=== PATIENT | female | born 1990 | race Hispanic/Latino ===

== ENCOUNTER 2017-12-12 18:32 | Inpatient (IN) | payer OTHER ==
[~2017-12-12] VITALS: Ht 160 cm; Wt 90.0 kg
[~2017-12-12 18:32] MED LIST: ALPRAZOLAM0.25 M2 PO; AMOXICILLIN500 M1 PO; ATARAX,VISTARIL25 MG PO; ATARAX,VISTARIL50 MG PO; DESYREL100 MG PO; DESYREL300 MG PO; ELIMITE 5% CREA60 GM TP; FLONASE16 G1 BOTH NARES; FLUOXETINE HCL20 MG PO; MUCUS RELIEF600 MG PO; PREDNISONE20 MG PO; PROZAC10 M1 PO; PROZAC40 MG PO; Prozac PO; SINGULAIR10 MG PO; Singulair PO; TOPAMAX100 MG PO; TOPAMAX50 MG PO; TOPIRAMATE100 MG PO; TRAZODONE HCL100 MG PO; XANAX XR0.5 MG PO; XANAX0.5 MG PO; ZYPREXA15 MG PO; ZYPREXA20 MG PO
[2017-12-12 19:52] LABS: HEMATOCRIT 42.8 % (36.0-46.0); HEMOGLOBIN 14.2 G/DL (11.9-15.5); MCH 29.1 PG (29.0-34.0); MCHC 33.2 G/DL (30.0-36.0); MCV 87.7 FL (83-99); PLATELET COUNT 293 K/uL (156-360); RBC DIS.WIDTH-CV 13.9 % (11.8-14.6); RBC DIS.WIDTH-SD 45.1 % (39-53); RED BLOOD COUNT 4.88 M/uL (3.80-5.20); WHITE BLOOD COUNT 11.3 K/uL (4.1-10.2)
[2017-12-12 20:12] LABS: CHLORIDE 105 mEq/L (99-109); POTASSIUM 3.8 mEq/L (3.7-5.4); SODIUM 135 mEq/L (136-147)
[2017-12-12 20:14] LABS: GLUCOSE 78 mg/dL (70-99)
[2017-12-12 20:17] LABS: SERUM ETHYL ALCOHOL < 10 mg/dL
[2017-12-12 20:18] LABS: CREATININE 0.9 mg/dL (0.6-1.3); GFR ESTIMATE (CALCULATED) > 59 mL/min/
[2017-12-12 20:19] LABS: UREA NITROGEN (BUN) 16 mg/dL (9-23)
[2017-12-12 20:26] LABS: QUANTITATIVE HCG < 4.0 MIU/ML
[2017-12-12 20:36] LABS: AMPHETAMINE NEGATIVE (500 ng/mL); BARBITURATES NEGATIVE (200 ng/mL); BENZODIAZEPINES NEGATIVE (150 ng/mL); BUPRENORPHINE NEGATIVE (10 ng/mL); COCAINE NEGATIVE (150 ng/mL); METHADONE NEGATIVE (200 ng/mL); METHAMPHETAMINE NEGATIVE (500 ng/mL); OPIATES (MORPHINE) NEGATIVE (100 ng/mL); OXYCODONE NEGATIVE (100 ng/mL); PHENCYCLIDINE NEGATIVE (25 ng/mL); PROPOXYPHENE NEGATIVE (300 ng/mL); THC CANNABINOIDS NEGATIVE (50 ng/mL); TRICYCLIC ANTIDEPRESSANTS NEGATIVE (300 ng/mL)
[2017-12-12] MEDS ORDERED: PROZAC40 MG PO (23:34)
[2017-12-12] MEDS ORDERED: HALDOL5 MG PO (23:35)
[2017-12-12] MEDS ORDERED: COGENTIN1 MG PO (23:36)
[2017-12-13 01:55] VITALS: BP 150/83
[2017-12-13 08:00] VITALS: BP 125/71
[2017-12-13 15:52] VITALS: BP 122/83
[2017-12-14 07:37] VITALS: BP 134/60
[2017-12-14 16:02] VITALS: BP 129/72
[2017-12-15 07:42] VITALS: BP 125/59
[2017-12-15] MEDS ORDERED: GABAPENTIN300 MG PO (09:49)
[2017-12-15] MEDS ORDERED: RISPERIDONE1 MG PO (09:49)
[2017-12-15] MEDS ORDERED: FLUOXETINE HCL20 MG PO (09:49)
== END 2017-12-15 11:22 | disposition home or self-care (01) | DRG 885 ==
LOC: EME 18:32 → EDOF 23:36 → ENRESERV 12-13 01:45 → 1WEST 12-13 01:46
PROVIDERS: Emergency Medicine
DX: F31.9 Bipolar disorder, unspecified (principal); R45.851 Suicidal ideations; F43.10 Post-traumatic stress disorder, unspecified; E66.01 Morbid (severe) obesity due to excess calories; F63.9 Impulse disorder, unspecified; K21.9 Gastro-esophageal reflux disease without esophagitis; J45.909 Unspecified asthma, uncomplicated; F17.200 Nicotine dependence, unspecified, uncomplicated; F20.9 Schizophrenia, unspecified; Z68.35 Body mass index [BMI] 35.0-35.9, adult; Z81.8 Family history of other mental and behavioral disorders; Z87.820 Personal history of traumatic brain injury; Z91.5 Personal history of self-harm
CPT/HCPCS: 80048; 84702; 85027; 90837; 97150 GO; 97165 GO; 99281; 99285; G0480

== ENCOUNTER 2018-03-15 19:58 | Emergency (ER) | payer OTHER ==
[~2018-03-15] VITALS: Ht 160 cm; Wt 105.3 kg
[~2018-03-15 19:58] MED LIST changes: +COGENTIN1 MG PO; +GABAPENTIN300 MG PO; +HALDOL5 MG PO; +RISPERIDONE1 MG PO
[2018-03-15 20:26] LABS: HEMATOCRIT 45.1 % (36.0-46.0); HEMOGLOBIN 15.2 G/DL (11.9-15.5); MCHC 33.7 G/DL (30.0-36.0); MCV 89.1 FL (83-99); PLATELET COUNT 291 K/uL (156-360); RBC DIS.WIDTH-CV 13.7 % (11.8-14.6); RBC DIS.WIDTH-SD 44.6 % (39-53); RED BLOOD COUNT 5.06 M/uL (3.80-5.20); WHITE BLOOD COUNT 11.7 K/uL (4.1-10.2)
[2018-03-15 20:40] LABS: ALBUMIN 4.1 g/dL (3.2-4.8); CHLORIDE 103 mEq/L (99-109); POTASSIUM 4.5 mEq/L (3.7-5.4); SODIUM 138 mEq/L (136-147)
[2018-03-15 20:43] LABS: GLUCOSE 73 mg/dL (70-99); TOTAL PROTEIN 7.8 g/dL (6.4-8.3)
[2018-03-15 20:45] LABS: TOTAL BILIRUBIN 0.2 mg/dL (0.0-1.0)
[2018-03-15 20:46] LABS: ALKALINE PHOSPHATASE 83 IU/L (3-129); CREATININE 0.8 mg/dL (0.6-1.3); GFR ESTIMATE (CALCULATED) > 59 mL/min/
[2018-03-15 20:47] LABS: UREA NITROGEN (BUN) 17 mg/dL (9-23)
[2018-03-15 20:48] LABS: AST (GOT) 27 IU/L (2-34)
[2018-03-15 20:49] LABS: ALT (GPT) 20 IU/L (3-49)
[2018-03-15 20:57] LABS: QUANTITATIVE HCG < 4.0 MIU/ML
[2018-03-15 20:59] VITALS: BP 118/85
[2018-03-15 20:59] LABS: APPEARANCE CLOUDY ((CLEAR)); BILIRUBIN NEGATIVE; BLOOD NEGATIVE; COLOR YELLOW ((YELLOW)); GLUCOSE (STRIP) NEGATIVE; KETONES NEGATIVE; LEUKOCYTES NEGATIVE; NITRITE NEGATIVE; PROTEIN (STRIP) NEGATIVE; SPECIFIC GRAVITY 1.019 (1.000-1.030); UROBILINOGEN 0.2 MG/DL (0.2-1.0)
[2018-03-15 21:05] LABS: BACTERIA RARE /HPF; EPITHELIAL CELLS 3+ /HPF; MUCUS TRACE /LPF; RED BLOOD CELLS 0-5 /HPF (0-5); UCUL ADDED? NO; WHITE BLOOD CELLS 0-5 /HPF (0-5)
[2018-03-15] MEDS ORDERED: NIZORAL 2% CREA15 GM TP (21:51)
[2018-03-15] MEDS ORDERED: LAMISIL250 MG PO (21:51)
== END 2018-03-15 21:53 | disposition home or self-care (01) ==
LOC: EME 19:58
DX: B35.4 Tinea corporis (principal); J45.909 Unspecified asthma, uncomplicated; K21.9 Gastro-esophageal reflux disease without esophagitis; R56.9 Unspecified convulsions; G43.909 Migraine, unspecified, not intractable, without status migrainosus; F43.10 Post-traumatic stress disorder, unspecified; F32.9 Major depressive disorder, single episode, unspecified; F31.9 Bipolar disorder, unspecified; F20.9 Schizophrenia, unspecified; F17.200 Nicotine dependence, unspecified, uncomplicated; Z87.820 Personal history of traumatic brain injury; Z88.8 Allergy status to other drugs, medicaments and biological substances
CPT/HCPCS: 80048; 80053; 81003; 84702; 85027; 99281; 99284

== ENCOUNTER 2018-03-22 12:24 | Emergency (ER) | payer OTHER ==
[~2018-03-22] VITALS: Ht 160 cm; Wt 89.3 kg
[~2018-03-22 12:24] MED LIST changes: +LAMISIL250 MG PO; +NIZORAL 2% CREA15 GM TP
[2018-03-22 13:19] LABS: HEMATOCRIT 40.2 % (36.0-46.0); HEMOGLOBIN 13.5 G/DL (11.9-15.5); MCHC 33.6 G/DL (30.0-36.0); MCV 89.3 FL (83-99); PLATELET COUNT 229 K/uL (156-360); RBC DIS.WIDTH-CV 13.6 % (11.8-14.6); RBC DIS.WIDTH-SD 44.6 % (39-53); WHITE BLOOD COUNT 8.7 K/uL (4.1-10.2)
[2018-03-22 13:31] LABS: ALBUMIN 3.7 g/dL (3.2-4.8); CHLORIDE 109 mEq/L (99-109); POTASSIUM 3.8 mEq/L (3.7-5.4); SODIUM 142 mEq/L (136-147)
[2018-03-22 13:33] LABS: GLUCOSE 117 mg/dL (70-99)
[2018-03-22 13:34] LABS: TOTAL PROTEIN 6.9 g/dL (6.4-8.3)
[2018-03-22 13:36] LABS: SERUM ETHYL ALCOHOL < 10 mg/dL
[2018-03-22 13:37] LABS: ALKALINE PHOSPHATASE 83 IU/L (3-129); CREATININE 0.8 mg/dL (0.6-1.3); GFR ESTIMATE (CALCULATED) > 59 mL/min/
[2018-03-22 13:38] LABS: UREA NITROGEN (BUN) 22 mg/dL (9-23)
[2018-03-22 13:39] LABS: AST (GOT) 22 IU/L (2-34)
[2018-03-22 13:40] LABS: ALT (GPT) 24 IU/L (3-49); TOTAL BILIRUBIN 0.3 mg/dL (0.0-1.0)
[2018-03-22 16:12] LABS: APPEARANCE SL.HAZY ((CLEAR)); BILIRUBIN NEGATIVE; BLOOD NEGATIVE; COLOR YELLOW ((YELLOW)); GLUCOSE (STRIP) NEGATIVE; KETONES 5; LEUKOCYTES NEGATIVE; NITRITE NEGATIVE; PROTEIN (STRIP) 30; SPECIFIC GRAVITY 1.038 (1.000-1.030)
[2018-03-22 16:18] LABS: BACTERIA NONE SEEN /HPF; EPITHELIAL CELLS 1+ /HPF; MUCUS TRACE /LPF; RED BLOOD CELLS 0-5 /HPF (0-5); UCUL ADDED? NO; WHITE BLOOD CELLS 0-5 /HPF (0-5)
[2018-03-22 16:31] LABS: AMPHETAMINE NEGATIVE (500 ng/mL); BARBITURATES NEGATIVE (200 ng/mL); BENZODIAZEPINES NEGATIVE (150 ng/mL); BUPRENORPHINE NEGATIVE (10 ng/mL); COCAINE PRESUMPTIVE POSITIVE (150 ng/mL); METHADONE NEGATIVE (200 ng/mL); METHAMPHETAMINE NEGATIVE (500 ng/mL); OPIATES (MORPHINE) NEGATIVE (100 ng/mL); OXYCODONE NEGATIVE (100 ng/mL); PHENCYCLIDINE NEGATIVE (25 ng/mL); PROPOXYPHENE NEGATIVE (300 ng/mL); THC CANNABINOIDS NEGATIVE (50 ng/mL); TRICYCLIC ANTIDEPRESSANTS NEGATIVE (300 ng/mL)
[2018-03-22 18:07] VITALS: BP 121/68
== END 2018-03-22 18:17 | disposition home or self-care (01) ==
LOC: EME 12:24
PROVIDERS: Emergency Medicine
DX: F19.10 Other psychoactive substance abuse, uncomplicated (principal); L42 Pityriasis rosea; J45.909 Unspecified asthma, uncomplicated; K21.9 Gastro-esophageal reflux disease without esophagitis; F20.9 Schizophrenia, unspecified; F31.9 Bipolar disorder, unspecified; F32.9 Major depressive disorder, single episode, unspecified; F17.200 Nicotine dependence, unspecified, uncomplicated; Z87.820 Personal history of traumatic brain injury; Z88.8 Allergy status to other drugs, medicaments and biological substances
CPT/HCPCS: 80053; 81003; 84999; 85027; 99281; 99285; G0480; J7030

== ENCOUNTER 2018-04-17 14:32 | Emergency (ER) | payer OTHER ==
[~2018-04-17] VITALS: Ht 160 cm; Wt 104.4 kg
[2018-04-17 15:23] LABS: HEMATOCRIT 41.3 % (36.0-46.0); HEMOGLOBIN 13.8 G/DL (11.9-15.5); MCH 29.9 PG (29.0-34.0); MCHC 33.4 G/DL (30.0-36.0); MCV 89.4 FL (83-99); PLATELET COUNT 292 K/uL (156-360); RBC DIS.WIDTH-CV 13.7 % (11.8-14.6); RBC DIS.WIDTH-SD 44.2 % (39-53); RED BLOOD COUNT 4.62 M/uL (3.80-5.20); WHITE BLOOD COUNT 10.7 K/uL (4.1-10.2)
[2018-04-17 15:33] LABS: CHLORIDE 109 mEq/L (99-109); POTASSIUM 3.7 mEq/L (3.7-5.4); SODIUM 140 mEq/L (136-147)
[2018-04-17 15:35] LABS: GLUCOSE 105 mg/dL (70-99)
[2018-04-17 15:38] LABS: SERUM ETHYL ALCOHOL < 10 mg/dL
[2018-04-17 15:39] LABS: CREATININE 0.8 mg/dL (0.6-1.3); GFR ESTIMATE (CALCULATED) > 59 mL/min/
[2018-04-17 15:40] LABS: UREA NITROGEN (BUN) 14 mg/dL (9-23)
[2018-04-17 15:46] LABS: AMPHETAMINE NEGATIVE (500 ng/mL); BARBITURATES NEGATIVE (200 ng/mL); BENZODIAZEPINES NEGATIVE (150 ng/mL); BUPRENORPHINE NEGATIVE (10 ng/mL); COCAINE PRESUMPTIVE POSITIVE (150 ng/mL); METHADONE NEGATIVE (200 ng/mL); METHAMPHETAMINE NEGATIVE (500 ng/mL); OPIATES (MORPHINE) NEGATIVE (100 ng/mL); OXYCODONE NEGATIVE (100 ng/mL); PHENCYCLIDINE NEGATIVE (25 ng/mL); PROPOXYPHENE NEGATIVE (300 ng/mL); THC CANNABINOIDS PRESUMPTIVE POSITIVE (50 ng/mL); TRICYCLIC ANTIDEPRESSANTS NEGATIVE (300 ng/mL)
[2018-04-18 09:45] LABS: QUANTITATIVE HCG < 4.0 MIU/ML
[2018-04-18 15:12] VITALS: BP 117/61
== END 2018-04-18 15:16 ==
LOC: EME 14:32
DX: F33.2 Major depressive disorder, recurrent severe without psychotic features (principal); R45.851 Suicidal ideations; F19.10 Other psychoactive substance abuse, uncomplicated; F20.9 Schizophrenia, unspecified; F31.9 Bipolar disorder, unspecified; F43.10 Post-traumatic stress disorder, unspecified; J45.909 Unspecified asthma, uncomplicated; K21.9 Gastro-esophageal reflux disease without esophagitis; F17.200 Nicotine dependence, unspecified, uncomplicated; Z87.820 Personal history of traumatic brain injury; Z88.8 Allergy status to other drugs, medicaments and biological substances
CPT/HCPCS: 80048; 84702; 84999; 85027; 90837; 99281; 99285; G0480